=== PATIENT | male | born 1960 | race Caucasian/White ===

== ENCOUNTER 2019-04-29 11:53 | Observation (INO) | payer BC, OTHER ==
[2019-04-29] MEDS ORDERED: ASPIRIN 81 MG PO STA (12:09)
[2019-04-29 12:37] LABS: Basophils % (A) 0 %; Eosinophils # (A) 0.2 k/uL (0-0.7); Eosinophils % (A) 4 %; HCT 41.4 % (39.0-53.0); Lymphocytes # (A) 0.9 k/uL (1.0-4.8); Lymphocytes % (A) 21 %; MCH 30.5 pg (25.0-35.0); MCHC 33.8 g/dL (31.0-37.0); MCV 90.3 fL (80.0-100.0); Mean Platelet Volume 6.3; Monocytes # (A) 0.2 k/uL (0-1.0); Monocytes % (A) 5 %; Neutrophils % (A) 68 %; Platelet Count 220 k/uL (150-450); RBC 4.58 m/uL (4.30-5.90); RDW 14.2 % (11.5-15.5); WBC 4.3 k/uL (3.8-10.6)
[2019-04-29 12:50] LABS: African American GFR (CKD) >90 (>60 ml/min/1.73 sqM); Anion Gap 6 mmol/L; Blood Urea Nitrogen 13 mg/dL (9-20); Calcium 9.1 mg/dL (8.4-10.2); Carbon Dioxide 27 mmol/L (22-30); Chloride 107 mmol/L (98-107); Glucose 147 mg/dL (74-99); Potassium 3.9 mmol/L (3.5-5.1); Sodium 140 mmol/L (137-145)
--- NOTE | 2019-04-29 13:02 | CT ---
EXAMINATION TYPE: CT chest angio for PE DATE OF EXAM: 04/29/2019 COMPARISON: None HISTORY: Shortness of breath CT DLP: 907.8 mGycm Automated exposure control for dose reduction was used. CONTRAST: CT Chest for pulmonary embolism performed with with IV Contrast, patient injected with 100 mL of Isov ue 300. FINDINGS: LUNGS: There is very minimal subsegmental areas of consolidation likely in the basis of atelectasis. The right lung base is interlobular septal thickening compatible with interstitial lung disease and p robable fibrosis. MEDIASTINUM: There is satisfactory enhancement of the pulmonary artery and its branches, there is no CT evidence for pulmonary embolism. There are no greater than 1 cm hilar or mediastinal lymph nodes. No pericardial effusion is seen. Coronary artery calcification seen. OTHER: Gallstone noted. Diverticulosis of the colon. Accessory spleen noted. Atrophic and degenerati ve changes spine. Small hiatal hernia suspected. IMPRESSION: 1. Coronary artery calcified cage correlate clinically. 2. No CT evidence of pulmonary embolism. 3. Cholelithiasis. 4. Interstitial interlobular septal thickening at the lung bases compatible with mild chronic interst itial pulmonary lung disease or fibrosis.
[2019-04-29] MEDS ORDERED: NALOXONE 0.4 MG/ML 1 ML VIAL IV PRN (13:15)
--- NOTE | 2019-04-29 13:15 | ED ---
General Adult HPI - General Chief complaint: Shortness of Breath Stated complaint: sob Time Seen by Provider: 04/29/19 12:05 Source: patient, family Mode of arrival: ambulatory Limitations: no limitations - History of Present Illness Initial comments: Patient is a 58-year-old male who presents with a chief complaint of acute onset shortness of breath while walking this morning. The patient states he had a hip replacement about 2 weeks ago. He states that he is recovering well, walks without any assistance, and has overall been recovering very well. Patient states that while walking today, he had acute onset shortness of breath. This was accompanied by diaphoresis, nausea, and lightheadedness. He cannot identify inciting incident to his symptoms. He states that his symptoms were alleviated with rest. He states that he would need to take a break. Asked to ambulate around the emergency department or up a flight of stairs. - Related Data Home Medications Medication Instructions Recorded Confirmed Aspirin EC [Ecotrin Low Dose] 81 mg PO BID 04/29/19 04/29/19 Losartan [Cozaar] 25 mg PO DAILY 04/29/19 04/29/19 metFORMIN HCL 1,000 mg PO BID 04/29/19 04/29/19 Allergies Allergy/AdvReac Type Severity Reaction Status Date / Time Penicillins Allergy Rash/Hives/ Verified 04/29/19 12:27 Swelling Review of Systems ROS Statement: Those systems with pertinent positive or pertinent negative responses have been documented in the HPI. ROS Other: All systems not noted in ROS Statement are negative. Respiratory: Reports: dyspnea Cardiovascular: Reports: dyspnea on exertion Gastrointestinal: Reports: nausea Past Medical History Past Medical History: Hypertension History of Any Multi-Drug Resistant Organisms: None Reported Past Surgical History: Orthopedic Surgery Additional Past Surgical History / Comment(s): right hip, left hip, mass removal from nose Past Psychological History: No Psychological Hx Reported Smoking Status: Light tobacco smoker Past Alcohol Use History: Occasional Past Drug Use History: None Reported General Exam Limitations: no limitations General appearance: alert, in no apparent distress Head exam: Present: atraumatic, normocephalic Eye exam: Present: normal appearance ENT exam: Present: normal exam Neck exam: Present: normal inspection Respiratory exam: Present: normal lung sounds bilaterally. Absent: respiratory distress, wheezes Cardiovascular Exam: Present: normal rhythm, tachycardia GI/Abdominal exam: Present: soft. Absent: distended, tenderness Rectal exam: Present: deferred Extremities exam: Present: normal inspection. Absent: pedal edema, joint swelling, calf tenderness Back exam: Present: normal inspection Neurological exam: Present: alert, oriented X3 Psychiatric exam: Present: normal affect, normal mood Skin exam: Present: warm, dry, intact Course Vital Signs 04/29/19 04/29/19 11:56 12:17 Temperature 98.6 F Pulse Rate 107 H Respiratory 22 22 Rate Blood Pressure 124/88 O2 Sat by Pulse 93 L Oximetry Medical Decision Making - Medical Decision Making Patient presents with chief complaint of acute onset shortness of breath. On initial evaluation, patient is borderline hypoxic at 93% on room air, he is mildly tachycardic at 104 bpm. Patient is in no acute distress. He was placed on oxygen, given an aspirin. Concern for PE given her recent surgery and acute onset of his symptoms. Patient to be evaluated. Labs including cardiac enzymes, computed tomography scan of the chest with contrast. EKG performed at 1250 shows normal sinus rhythm with a rate of 94 bpm, signals are within normal limits, no acute signs of ischemia present. 1:[address] evaluation does not identify any evidence of pulmonary embolism. There is CT evidence of coronary artery calcifications, there is cholelithiasis, and interstitial, interlobular septal thickening of the lung bases compatible with mild chronic interstitial pulmonary disease versus fibrosis. Laboratory evaluation is unremarkable, initial cardiac enzymes are negative. On further discussion, the patient does now admit to nausea diaphoresis at the onset of his shortness of breath while walking. Currently, the patient states he is asymptomatic. He will be admitted for further cardiac evaluation. Results were discussed with the patient's family, they are agreeable with this care plan. Case discussed with Dr. Morrell who accepts admission with consult to cardiology. - Lab Data Result diagrams: 04/29/19 12:25 04/29/19 12:25 Lab Results 04/29/19 04/29/19 04/29/19 Range/Units 12:25 12:25 12:25 WBC 4.3 (3.8-10.6) k/uL RBC 4.58 (4.30-5.90) m/uL Hgb 14.0 (13.0-17.5) gm/dL Hct 41.4 (39.0-53.0) % MCV 90.3 (80.0-100.0) fL MCH 30.5 (25.0-35.0) pg MCHC 33.8 (31.0-37.0) g/dL RDW 14.2 (11.5-15.5) % Plt Count 220 (150-450) k/uL Neutrophils % 68 % Lymphocytes % 21 % Monocytes % 5 % Eosinophils % 4 % Basophils % 0 % Neutrophils # 3.0 (1.3-7.7) k/uL Lymphocytes # 0.9 L (1.0-4.8) k/uL Monocytes # 0.2 (0-1.0) k/uL Eosinophils # 0.2 (0-0.7) k/uL Basophils # 0.0 (0-0.2) k/uL Sodium 140 (137-145) mmol/L Potassium 3.9 (3.5-5.1) mmol/L Chloride 107 (98-107) mmol/L Carbon Dioxide 27 (22-30) mmol/L Anion Gap 6 mmol/L BUN 13 (9-20) mg/dL Creatinine 0.78 (0.66-1.25) mg/dL Est GFR (CKD-EPI)AfAm >90 (>60 ml/min/1.73 sqM) Est GFR (CKD-EPI)NonAf >90 (>60 ml/min/1.73 sqM) Glucose 147 H (74-99) mg/dL Calcium 9.1 (8.4-10.2) mg/dL Troponin I (0.000-0.034) ng/mL NT-Pro-B Natriuret Pep 19 pg/mL 04/29/19 Range/Units 12:25 WBC (3.8-10.6) k/uL RBC (4.30-5.90) m/uL Hgb (13.0-17.5) gm/dL Hct (39.0-53.0) % MCV (80.0-100.0) fL MCH (25.0-35.0) pg MCHC (31.0-37.0) g/dL RDW (11.5-15.5) % Plt Count (150-450) k/uL Neutrophils % % Lymphocytes % % Monocytes % % Eosinophils % % Basophils % % Neutrophils # (1.3-7.7) k/uL Lymphocytes # (1.0-4.8) k/uL Monocytes # (0-1.0) k/uL Eosinophils # (0-0.7) k/uL Basophils # (0-0.2) k/uL Sodium (137-145) mmol/L Potassium (3.5-5.1) mmol/L Chloride (98-107) mmol/L Carbon Dioxide (22-30) mmol/L Anion Gap mmol/L BUN (9-20) mg/dL Creatinine (0.66-1.25) mg/dL Est GFR (CKD-EPI)AfAm (>60 ml/min/1.73 sqM) Est GFR (CKD-EPI)NonAf (>60 ml/min/1.73 sqM) Glucose (74-99) mg/dL Calcium (8.4-10.2) mg/dL Troponin I <0.012 (0.000-0.034) ng/mL NT-Pro-B Natriuret Pep pg/mL Disposition Clinical Impression: Moderate risk chest pain, Exertional dyspnea Disposition: ADMITTED IP TO THIS HOSP Condition: Good Is patient prescribed a controlled substance at d/c from ED?: No Referrals: Nonstaff,Physician [Primary Care Provider] - 1-2 days Decision to Admit Reason: Admit from EC - Out of Hospital Transfer - Req. Specs Out of Hospital Transfer - Requested Specifics: Telemetry Unit
[2019-04-29] MEDS ORDERED: IPRATROPIUM-ALBUTEROL 3 ML NEB INHALATION PRN (17:02)
--- NOTE | 2019-04-29 17:05 | P.HPIM ---
History of Present Illness H&P Date: 04/29/19 Chief Complaint: Shortness of breath 58-year-old male with PMH of hypertension, hip replacement 2 weeks ago presents the ED for shortness of breath. Patient reports waking up this morning and eating breakfast. He decided to walk into his backyard which was about 700 feet. Patient reports that he started gardening when he noticed a sudden onset of shortness of breath. Patient reports that it was humid and the environment had a lot of pollen and dust. Patient reports that the shortness of breath continued to worsen, prompting him to come to the ED. Patient reports previously being able to walk more than 2 miles without feeling short of breath. Patient denies any orthopnea or lower extremity swelling. 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 He has retired for the past 25 years. Patient denies any headache, lower extremity edema, nausea or vomiting, fever or chills, cough, chest pain, palpitations, changes in urination or bowel habits. No changes in appetite or weight. He denies any dizziness, numbness/weakness/tingling of the extremities. In the ED, vital signs were stable. CBC was unremarkable. CMP showed a glucose of 147. Troponin was less than 0.012 with EKG showing normal sinus rhythm. BNP was 19. Chest CTA was negative for PE but showed findings of pulmonary fibrosis. Patient is admitted for shortness of breath, rule out acute coronary syndrome. Review of Systems Pertinent positives and negatives as discussed in HPI, a complete review of systems was performed and all other systems are negative. Past Medical History Past Medical History: Hypertension Additional Past Medical History / Comment(s): "borderline diabetic and hypertensive" History of Any Multi-Drug Resistant Organisms: None Reported Past Surgical History: Orthopedic Surgery Additional Past Surgical History / Comment(s): right hip, left hip, mass removal from nose Past Anesthesia/Blood Transfusion Reactions: No Reported Reaction Past Psychological History: No Psychological Hx Reported Smoking Status: Never smoker Past Alcohol Use History: Occasional Past Drug Use History: None Reported - Past Family History Mother Family Medical History: Congestive Heart Failure (CHF), Hyperlipidemia Father Family Medical History: Congestive Heart Failure (CHF), Diabetes Mellitus, Hyperlipidemia Medications and Allergies Home Medications Medication Instructions Recorded Confirmed Type Aspirin EC [Ecotrin Low Dose] 81 mg PO BID 04/29/19 04/29/19 History Losartan [Cozaar] 25 mg PO DAILY 04/29/19 04/29/19 History metFORMIN HCL 1,000 mg PO BID 04/29/19 04/29/19 History Allergies Allergy/AdvReac Type Severity Reaction Status Date / Time Penicillins Allergy Rash/Hives/ Verified 04/29/19 12:27 Swelling Physical Exam Vitals: Vital Signs Temp Pulse Pulse Resp BP BP Pulse Ox 04/29/19 14:57 97.6 F 90 18 156/93 93 L 04/29/19 13:39 98.4 F 95 20 134/87 96 04/29/19 12:17 22 04/29/19 11:56 98.6 F 107 H 22 124/88 93 L Intake and Output 04/29/19 04/29/19 04/29/19 06:59 14:59 22:59 Other: Weight 113.398 kg General: [non toxic], [no distress], [appears at stated age] Derm: [warm], [dry] Head: [atraumatic], [normocephalic], [symmetric] Eyes: [EOMI], [no lid lag], [anicteric sclera] Mouth: [no lip lesion], [mucus membranes moist] Cardiovascular: [S1S2 reg], [no murmur], [positive posterior tibial pulse bilateral], Lungs: [CTA bilateral], [no rhonchi, no rales] , [no accessory muscle use] Abdominal: [soft], [ nontender to palpation], [no guarding], [no appreciable organomegaly] Ext: [no gross muscle atrophy], [no edema], [no contractures] Neuro: [ CN II-XI grossly intact], [no focal neuro deficits] Psych: [Alert], [oriented], [appropriate affect] Results CBC & Chem 7: 04/29/19 12:25 04/29/19 12:25 Labs: Abnormal Lab Results - Last 24 Hours (Table) 04/29/19 04/29/19 Range/Units 12:25 12:25 Lymphocytes # 0.9 L (1.0-4.8) k/uL Glucose 147 H (74-99) mg/dL Thrombosis Risk Factor Assmnt - Choose All That Apply Any of the Below Risk Factors Present?: Yes Each Factor Represents 1 point: Age 41-60 years Thrombosis Risk Factor Assessment Total Risk Factor Score: 1 Thrombosis Risk Factor Assessment Level: Low Risk Assessment and Plan Assessment: Assessment and Plan Acute onset of shortness of breath likely related to pulmonary fibrosis Hypertension Possibly related to interstitial lung disease. Troponin was less than 0.012 with EKG showing normal sinus rhythm. CTA of the chest rules out PE but shows findings of pulmonary fibrosis. BNP is 19. Plans: Trend 2 troponin/EKG to rule out ACS. Start DuoNeb 4 times a day as needed for shortness of breath. Will start 5 day course of prednisone 40 mg by mouth. Follow echocardiogram. Follow cardiology and pulmonology consultation. Telemetry monitoring. BP 156/93. Plans: Continue losartan. Monitor vitals, adjust medications as necessary. DVT prophylaxis: [SCD boots] Discussed with: [Patient and ] Anticipated discharge: [Tomorrow] Anticipated discharge place: [Home] A total of [30] minutes was spent on the care of this complex patient more than 50% of the time was spent in counseling and care coordination. Patient would like to make his Cris decision-maker indicates that he can make decisions for himself. Patient elects to be full code at this time. Patient is admitted for acute onset of shortness of breath. PE has been ruled out. Plans to rule out ACS, echocardiogram ordered, cardiology consulted. Findings consistent with pulmonary fibrosis, started on DuoNeb and prednisone, pulmonology is consulted. Patient is pending clinical improvement. Likely DC tomorrow.
[2019-04-29] MEDS: ASPIRIN 81 MG PO SCH (19:58)
[2019-04-30 06:29] LABS: Basophils % (A) 0 %; Eosinophils # (A) 0.3 k/uL (0-0.7); Eosinophils % (A) 4 %; HCT 40.3 % (39.0-53.0); Lymphocytes % (A) 17 %; MCH 29.6 pg (25.0-35.0); MCHC 32.3 g/dL (31.0-37.0); MCV 91.8 fL (80.0-100.0); Mean Platelet Volume 6.5; Monocytes # (A) 0.3 k/uL (0-1.0); Monocytes % (A) 5 %; Neutrophils # (A) 4.4 k/uL (1.3-7.7); Neutrophils % (A) 72 %; Platelet Count 215 k/uL (150-450); RBC 4.39 m/uL (4.30-5.90); RDW 14.3 % (11.5-15.5); WBC 6.1 k/uL (3.8-10.6)
[2019-04-30 06:45] LABS: African American GFR (CKD) >90 (>60 ml/min/1.73 sqM); Anion Gap 5 mmol/L; Blood Urea Nitrogen 10 mg/dL (9-20); Calcium 9.1 mg/dL (8.4-10.2); Carbon Dioxide 30 mmol/L (22-30); Chloride 104 mmol/L (98-107); Glucose 119 mg/dL (74-99); Potassium 4.6 mmol/L (3.5-5.1); Sodium 139 mmol/L (137-145)
[2019-04-30 07:56] VITALS: RESP 16
[2019-04-30] MEDS ORDERED: LOSARTAN 25 MG TAB PO SCH (09:00)
[2019-04-30] MEDS ORDERED: predniSONE 20 MG TAB PO SCH (09:00)
[2019-04-30] MEDS: ASPIRIN 81 MG PO SCH (10:35)
--- NOTE | 2019-04-30 11:34 | P.CRDCN ---
History of Present Illness Consult date: 04/30/19 History of present illness: This is a 58-year-old gentleman with history of hypertension who had a hip replacement about 2 weeks ago. Patient came home and and has been able to ambulate. Patient had a previous hip replacement. Patient was ambulating and doing something in the garden yesterday. Suddenly he became very short of breath. No wheezing or rhonchi. Denied any chest pain. Because of the concern for possible pulmonary emboli, Patient came to the emergency room. Patient had a computed tomography scan of the chest which is negative for ischemia. His EKGs are normal. Cardiac enzymes are negative. Patient thinks the most probably had some ALLERGIC reaction and has had similar experience long time ago. No history of smoking, diabetes or previous ischemic heart disease. Patient is vacationing and his from out of town and wants to go home. He'll see his primary physician, soon. Bedside echocardiogram showed normal LV function without any segmental wall motion defects. Patient could be discharged home to have further follow-up with primary care physician and possible stress test. Patient had a stress test about 2 years ago which apparently was normal Review of Systems As per the chart Past Medical History Past Medical History: Hypertension Additional Past Medical History / Comment(s): "borderline diabetic and hypertensive" History of Any Multi-Drug Resistant Organisms: None Reported Past Surgical History: Orthopedic Surgery Additional Past Surgical History / Comment(s): right hip, left hip, mass removal from nose Past Anesthesia/Blood Transfusion Reactions: No Reported Reaction Past Psychological History: No Psychological Hx Reported Smoking Status: Never smoker Past Alcohol Use History: Occasional Past Drug Use History: None Reported - Past Family History Mother Family Medical History: Congestive Heart Failure (CHF), Hyperlipidemia Father Family Medical History: Congestive Heart Failure (CHF), Diabetes Mellitus, Hyperlipidemia Medications and Allergies Home Medications Medication Instructions Recorded Confirmed Type Aspirin EC [Ecotrin Low Dose] 81 mg PO BID 04/29/19 04/29/19 History Losartan [Cozaar] 25 mg PO DAILY 04/29/19 04/29/19 History metFORMIN HCL 1,000 mg PO BID 04/29/19 04/29/19 History Allergies Allergy/AdvReac Type Severity Reaction Status Date / Time Penicillins Allergy Rash/Hives/ Verified 04/29/19 12:27 Swelling Physical Exam Vitals: Vital Signs Temp Pulse Pulse Resp BP BP Pulse Ox 04/30/19 08:00 87 16 04/30/19 07:55 97.6 F 92 87 16 144/87 94 L 04/30/19 07:40 84 04/30/19 04:00 98.4 F 83 15 138/74 96 04/29/19 23:50 98.8 F 80 15 133/84 97 04/29/19 23:29 16 04/29/19 20:00 16 04/29/19 19:22 98.8 F 90 15 139/85 97 04/29/19 16:00 18 04/29/19 14:57 97.6 F 90 18 156/93 93 L 04/29/19 13:39 98.4 F 95 20 134/87 96 04/29/19 12:17 22 04/29/19 11:56 98.6 F 107 H 22 124/88 93 L Intake and Output 04/29/19 04/30/19 04/30/19 22:59 06:59 14:59 Other: Voiding Method Toilet Toilet Toilet # Voids 1 GENERAL EXAM: Patient is alert and oriented and doesn't appear to be in any acute distress HEENT: Normocephalic. Normal reaction of pupils, equal size, normal range of extraocular motion. No erythema or exudates in the throat. NECK: No masses, no nuchal rigidity. CHEST: No chest wall deformity. LUNGS: Equal air entry with no crackles or wheeze. HEART: S1 and S2 normal with no audible mumurs or gallops. Regular rhythm, femorals equal on both sides.. ABDOMEN: No hepatosplenomegaly, normal bowel sounds, no guarding or rigidity. SKIN: No rashes CENTRAL NERVOUS SYSTEM: No focal deficits. EXTREMITIES: No cyanosis, clubbing or edema. Results 04/30/19 06:17 04/30/19 06:17 Cardiac Enzymes 04/29/19 04/29/19 04/30/19 Range/Units 12:25 17:40 00:39 Troponin I <0.012 <0.012 <0.012 (0.000-0.034) ng/mL CBC 04/29/19 04/30/19 Range/Units 12:25 06:17 WBC 4.3 6.1 (3.8-10.6) k/uL RBC 4.58 4.39 (4.30-5.90) m/uL Hgb 14.0 13.0 (13.0-17.5) gm/dL Hct 41.4 40.3 (39.0-53.0) % Plt Count 220 215 (150-450) k/uL Comprehensive Metabolic Panel 04/29/19 04/30/19 Range/Units 12:25 06:17 Sodium 140 139 (137-145) mmol/L Potassium 3.9 4.6 (3.5-5.1) mmol/L Chloride 107 104 (98-107) mmol/L Carbon Dioxide 27 30 (22-30) mmol/L BUN 13 10 (9-20) mg/dL Creatinine 0.78 0.69 (0.66-1.25) mg/dL Glucose 147 H 119 H (74-99) mg/dL Calcium 9.1 9.1 (8.4-10.2) mg/dL Current Medications Generic Name Dose Route Start Last Admin Trade Name Freq PRN Reason Stop Dose Admin Albuterol/Ipratropium 3 ml 04/29/19 17:02 04/30/19 07:52 Duoneb 0.5 Mg-3 Mg/3 Ml Soln INHALATION 3 ml RT-QID PRN Administration Shortness Of Breath Or Wheezing Aspirin 81 mg 04/29/19 21:00 04/30/19 10:35 Aspirin PO 81 mg BID GALINDO Administration Losartan Potassium 25 mg 04/30/19 09:00 04/30/19 10:34 Cozaar PO 25 mg DAILY GALINDO Administration Naloxone HCl 0.2 mg 04/29/19 13:15 Narcan IV Q2M PRN Opioid Reversal Prednisone 40 mg 04/30/19 09:00 04/30/19 10:34 PO 05/04/19 09:01 40 mg DAILY GALINDO Administration Intake and Output 04/29/19 04/30/19 04/30/19 22:59 06:59 14:59 Other: Voiding Method Toilet Toilet Toilet # Voids 1 04/30/19 06:17 04/30/19 06:17 EKG Interpretations (text) Sinus rhythm Assessment and Plan (1) Essential hypertension Current Visit: Yes Status: Acute Code(s): I10 - ESSENTIAL (PRIMARY) HYPERTENSION SNOMED Code(s): 01897012 (2) Exertional dyspnea Current Visit: Yes Status: Acute Code(s): R06.09 - OTHER FORMS OF DYSPNEA SNOMED Code(s): 81121100 (3) History of hip replacement Current Visit: Yes Status: Acute Code(s): Z96.649 - PRESENCE OF UNSPECIFIED ARTIFICIAL HIP JOINT SNOMED Code(s): 139234297 Plan: At this point patient cardiac enzymes, EKGs and echo within normal limits. Computed tomography scan is negative for ischemia. Patient could be discharged home from [facility] standpoint. Follow-up with primary care physician and possible stress test as an outpatient.
[2019-04-30 12:24] VITALS: BP 123/83; PULSE 84; TEMP 98.4
--- NOTE | 2019-04-30 12:56 | ECHOF ---
Referral Reason:cp MEASUREMENTS -------- HEIGHT: 175.3 cm WEIGHT: 113.4 kg BP: 144/87 RVIDd: 3.5 cm (< 3.3) IVSd: 1.2 cm (0.6 - 1.1) LVIDd: 4.8 cm (3.9 - 5.3) LVPWd: 1.2 cm (0.6 - 1.1) IVSs: 1.9 cm LVIDs: 2.9 cm LVPWs: 1.7 cm LA Diam: 3.3 cm (2.7 - 3.8) LAESV Index (A-L): 26.28 ml/m Ao Diam: 4.2 cm (2.0 - 3.7) AV Cusp: 2.5 cm (1.5 - 2.6) MV EXCURSION: 14.013 mm (> 18.000) MV EF SLOPE: 84 mm/s (70 - 150) EPSS: 0.9 cm MV E Efren: 0.76 m/s MV DecT: 347 ms MV A Efren: 0.96 m/s MV E/A Ratio: 0.79 RAP: 5.00 mmHg RVSP: 22.70 mmHg FINDINGS -------- Sinus rhythm. This was a technically good study. The left ventricular size is normal. There is borderline concentric left ventricular hypertrophy. Overall left ventricular systolic function is normal with, an EF between 60 - 65 %. The right ventricle is mildly enlarged. Normal LA size by volume 22+/-6 ml/m2. The right atrium is normal in size. Interatrial and interventricular septum intact. The aortic valve is trileaflet and appears structurally normal. The mitral valve is normal. Mild tricuspid regurgitation present. Right ventricular systolic pressure is normal at < 35 mmHg. Trace/mild (physiologic) pulmonic regurgitation. The aortic root is dilated measuring 4.2cm. Normal inferior vena cava with normal inspiratory collapse consistent with estimated right atrial pre ssure of 5 mmHg. There is no pericardial effusion. CONCLUSIONS -------- 1. Sinus rhythm. 2. This was a technically good study. 3. The left ventricular size is normal. 4. There is borderline concentric left ventricular hypertrophy. 5. Overall left ventricular systolic function is normal with, an EF between 60 - 65 %. 6. The right ventricle is mildly enlarged. 7. Normal LA size by volume 22+/-6 ml/m2. 8. The right atrium is normal in size. 9. Interatrial and interventricular septum intact. 10. The aortic valve is trileaflet and appears structurally normal. 11. The mitral valve is normal. 12. Mild tricuspid regurgitation present. 13. Right ventricular systolic pressure is normal at < 35 mmHg. 14. Trace/mild (physiologic) pulmonic regurgitation. 15. The aortic root is dilated measuring 4.2cm. 16. Normal inferior vena cava with normal inspiratory collapse consistent with estimated right atrial pressure of 5 mmHg. 17. There is no pericardial effusion. HOSPITAL CLINIC ASSISTANT: Gisell Saunders RDCS
--- NOTE | 2019-04-30 14:19 | P.CNPUL ---
History of Present Illness Consult date: 04/30/19 Requesting physician: Leroy Abarca Reason for consult: dyspnea Chief complaint: Sudden episode of shortness of breath History of present illness: This is a 58-year-old white male with history of hypertension, degenerative joint disease, history of recent hip replacement about 2 weeks ago, this was done at [facility]. Patient had no previous history of documented asthma or COPD, never smoked, but he told her today that he always had difficulty breathing when he is around pollen or mold. Never treated with bronchodilators. Patient was working in his garden yesterday, suddenly he developed shortness of breath, no chest pain, no cough no wheezing, no fever, no chills. Patient became quite concerned about the possibility of pulmonary embolism, hence he came into the ER. Workup included CT angiogram of the chest which came back negative for thromboembolic disease. EKG was normal. Cardiac enzymes are normal. His CT angiogram of the chest showed nonspecific pulmonary fibrosis, minimal, hence this consult was initiated. During my evaluation, the patient has no pulmonary symptoms whatsoever. No cough no wheezing no fever no chills no chest pain or shortness of breath. No palpitations. Patient was already seen by cardiology and cleared for discharge. His echocardiogram was also unremarkable. Labs on admission were all normal. Review of Systems Constitutional: Denies any weight loss, no fever, no chills. No weight loss. Eyes: denies blurred vision, denies decreased vision Ears: deny: decreased hearing Ears, nose, mouth and throat: Denies headache, Denies sore throat Cardiovascular: Denies any chest pain and palpitations syncope. Denies any diaphoresis. Respiratory: As noted in the history of the present illness, relatively asymptomatic. Gastrointestinal: Denies abdominal pain, Denies diarrhea, Denies nausea, Denies vomiting Genitourinary: Denies any dysuria frequency urgency or hematuria. Musculoskeletal: History of osteoarthritis, and recent hip arthroplasty at [facility]. Integumentary: Denies pruritus, Denies rash Neurological: Denies headaches blurred vision dizziness weakness or numbness. Psychiatric: Denies any depression symptoms, denied any suicidal or homicidal thoughts. Endocrine: Denies any heat or cold intolerance. Denies any polyuria or polyphagia and polydipsia. Past Medical History Past Medical History: Hypertension Additional Past Medical History / Comment(s): "borderline diabetic and hypertensive" History of Any Multi-Drug Resistant Organisms: None Reported Past Surgical History: Orthopedic Surgery Additional Past Surgical History / Comment(s): right hip, left hip, mass removal from nose Past Anesthesia/Blood Transfusion Reactions: No Reported Reaction Past Psychological History: No Psychological Hx Reported Smoking Status: Never smoker Past Alcohol Use History: Occasional Past Drug Use History: None Reported - Past Family History Mother Family Medical History: Congestive Heart Failure (CHF), Hyperlipidemia Father Family Medical History: Congestive Heart Failure (CHF), Diabetes Mellitus, Hyperlipidemia Medications and Allergies Home Medications Medication Instructions Recorded Confirmed Type Aspirin EC [Ecotrin Low Dose] 81 mg PO BID 04/29/19 04/29/19 History Losartan [Cozaar] 25 mg PO DAILY 04/29/19 04/29/19 History metFORMIN HCL 1,000 mg PO BID 04/29/19 04/29/19 History Allergies Allergy/AdvReac Type Severity Reaction Status Date / Time Penicillins Allergy Rash/Hives/ Verified 04/29/19 12:27 Swelling Physical Exam Vitals: Vital Signs Temp Pulse Pulse Resp BP BP Pulse Ox 04/30/19 12:00 98.4 F 84 16 123/83 95 04/30/19 08:00 87 16 04/30/19 07:55 97.6 F 92 87 16 144/87 94 L 04/30/19 07:40 84 04/30/19 04:00 98.4 F 83 15 138/74 96 04/29/19 23:50 98.8 F 80 15 133/84 97 04/29/19 23:29 16 04/29/19 20:00 16 04/29/19 19:22 98.8 F 90 15 139/85 97 04/29/19 16:00 18 04/29/19 14:57 97.6 F 90 18 156/93 93 L Intake and Output 04/29/19 04/30/19 04/30/19 22:59 06:59 14:59 Intake Total 222 Balance 222 Intake: Oral 222 Other: Voiding Method Toilet Toilet Toilet # Voids 1 Physical Exam: Revealed 58-year-old white male, extremely pleasant, in no distress. Head: Atraumatic, normocephalic. HEENT:[Neck is supple.] [No neck masses.] [No thyromegaly.] [No JVD.] Chest: [Clear throughout, no crackles, no rhonchi, no wheezes.] Cardiac Exam: [Normal S1 and S2, no S3 gallop, no murmur.] Abdomen: [Soft, nontender, no megaly, no rebound, no guarding, normal bowel sounds.] Extremities: [No clubbing, no edema, no cyanosis.] Neurological Exam: [No focal neurologic deficit.] Alert and oriented 3. Psychiatric: Normal mood affect and normal mental status examination. Skin: No rashes. Lymphatics: No lymphadenopathy. Results - Laboratory Findings CBC and BMP: 04/30/19 06:17 04/30/19 06:17 Abnormal lab findings: Abnormal Labs 04/29/19 04/29/19 04/30/19 12:25 12:25 06:17 Lymphocytes # 0.9 L Glucose 147 H 119 H - Diagnostic Findings CT scan - chest: image reviewed (As noted in HPI.) Assessment and Plan Assessment: Impression: Acute onset of shortness of breath, suspect transient episode of bronchospasm, could be related to exposure to pollen. Patient had previous episodes in the past, he may have underlying bronchial asthma. However the patient will eventually require a methacholine inhalation challenge test to confirm this and this could be done on outpatient basis. Presently the patient is asymptomatic, I did recommend that he uses albuterol 2 puffs 4 times a day when necessary, and patient could be cleared to be discharged home. Suggest outpatient follow-up in my office and I would likely recommend a methacholine inhalation challenge test. Nonspecific, minimal pulmonary fibrosis, need to be monitored on outpatient basis, patient will eventually need a PFT and a high-resolution CT of the chest in the next 6 months. Patient is aware of his mild pulmonary fibrosis, strongly doubt if this has anything to do with his sudden episode of shortness of breath. Degenerative joint disease and recent hip arthroplasty, following up with orthopedics at [facility]. Recommendation: Patient was given a prescription for albuterol 2 puffs 4 times a day when necessary, cleared for discharge if cleared by other physicians, and advised to have outpatient follow-up regarding his episode of shortness of breath and possibly consider a methacholine inhalation challenge test in the office, also needs future follow-up on his mild pulmonary fibrosis. Time with Patient: Greater than 30
--- NOTE | 2019-04-30 14:56 | P.DS ---
Providers Date of admission: 04/29/19 13:15 Expected date of discharge: 04/30/19 Attending physician: Leroy Abarca MD Consults: 04/29/19 13:16 Consult Physician Routine Consulting Provider: Selvin Landeros Consult Reason/Comments: moderate risk chest pain Do you want consulting provider notified?: Yes 04/29/19 17:01 Consult Physician Routine Consulting Provider: Otilio Gibson Consult Reason/Comments: Pulmonary fibrosis Do you want consulting provider notified?: Yes Primary care physician: Physician Nonstaff - Discharge Diagnosis(es) (1) Acute bronchospasm Current Visit: Yes Status: Acute (2) Pulmonary fibrosis Current Visit: Yes Status: Acute (3) Dyspnea Current Visit: Yes Status: Acute (4) Essential hypertension Current Visit: Yes Status: Acute Hospital Course: The patient is a 58-year-old male with hypertension gentle joint disease and recent hip replacement 2 weeks ago that presented with dyspneaon observation for further workup. Workup was negative his troponins were negative, NT proBNP was 19. CTA of the chest was negative for PE but did show mild chronic interstitial pulmonary lung disease or fibrosis. Echocardiogram indicated a preserved LVEF of 60-65% and the patient was cleared by cardiology. Pulmonary was consulted and suspected that acute bronchospasm was responsible for the patient's dyspnea and recommended outpatient workup for possible underlying bronchial asthma with a methacholine inhalation challenge test with plans for PFT, high-resolution CT for monitoring of the patient's mild pulmonary fibrosis. Patient was cleared for discharge with recommendations for albuterol inhaler. Focused exam Respiratory: Clear to auscultation bilaterally no wheezes or rhonchi Patient Condition at Discharge: Good Plan - Discharge Summary Discharge Rx Participant: No New Discharge Prescriptions: No Action Aspirin EC [Ecotrin Low Dose] 81 mg PO BID metFORMIN HCL 1,000 mg PO BID Losartan [Cozaar] 25 mg PO DAILY Discharge Medication List Aspirin EC [Ecotrin Low Dose] 81 mg PO BID 04/29/19 [History] Losartan [Cozaar] 25 mg PO DAILY 04/29/19 [History] metFORMIN HCL 1,000 mg PO BID 04/29/19 [History] Follow up Appointment(s)/Referral(s): Nonstaff,Physician [Primary Care Provider] - 1-2 days Discharge Disposition: HOME SELF-CARE
== END 2019-04-30 15:06 | disposition home or self-care (01) ==
LOC: EC 11:53 → 1SOBS 13:15
PROVIDERS: ADMIT Family Medicine; ATTEND Family Medicine
DX: J98.01 Acute bronchospasm (principal); J84.10 Pulmonary fibrosis, unspecified; I10 Essential (primary) hypertension; R06.09 Other forms of dyspnea; R61 Generalized hyperhidrosis; R11.0 Nausea; R06.02 Shortness of breath; R09.02 Hypoxemia; R00.0 Tachycardia, unspecified; F17.200 Nicotine dependence, unspecified, uncomplicated; R73.03 Prediabetes; M19.90 Unspecified osteoarthritis, unspecified site; I25.10 Atherosclerotic heart disease of native coronary artery without angina pectoris; K80.20 Calculus of gallbladder without cholecystitis without obstruction; Z96.649 Presence of unspecified artificial hip joint; Z79.899 Other long term (current) drug therapy; Z79.82 Long term (current) use of aspirin; Z79.84 Long term (current) use of oral hypoglycemic drugs; Z88.0 Allergy status to penicillin; Z77.090 Contact with and (suspected) exposure to asbestos; Z57.2 Occupational exposure to dust; Z57.5 Occupational exposure to toxic agents in other industries; Z82.49 Family history of ischemic heart disease and other diseases of the circulatory system; Z83.3 Family history of diabetes mellitus
CPT/HCPCS: 99285; 36415; 94640; 93005; 93306; 83880; 80048 ×2; 84484 ×2; 85025 ×2; 71275; G0378 ×2; J7512; Q9967

== ENCOUNTER 2023-02-03 08:46 | Day surgery (SDC) | payer BC, OTHER ==
[~2023-02-03 08:46] MED LIST: CIPROFLOXACIN/DEXTROSE PMX 400 MG in DEXTROSE/WATER 1 200ML.BAG IVPB PRN
--- NOTE | 2023-02-03 15:19 | XR ---
EXAMINATION TYPE: XR KUB DATE OF EXAM: 02/03/2023 COMPARISON: None INDICATION: Right ureteral stone TECHNIQUE: Single view abdomen frontal projection FINDINGS: There is a normal bowel gas pattern. Psoas margins are normal. No organomegaly is present. There is a 1.5 cm calcification upper pole right kidney. There is a 0.9 cm calcification which may be within the distal right ureter. IMPRESSION: 1. Distal right ureteral stone measuring 0.9 cm. 2. 1.5 cm right renal stone
[2023-02-03] MEDS ORDERED: LACTATED RINGERS 1,000 ML IV ONE ×2 (15:49→19:42)
[2023-02-03] MEDS ORDERED: ONDANSETRON 4 MG/2 ML VIAL IVP ONE (16:05)
[2023-02-03] MEDS ORDERED: DEXAMETHASONE SOD PHOSPHATE 4 MG/ML 1 ML VIAL IVP ONE (16:06)
[2023-02-03] MEDS ORDERED: ONDANSETRON 4 MG/2 ML VIAL ONE (16:08)
[2023-02-03 16:24] LABS: Glucose,Whole Blood 118 mg/dL (70-110)
[2023-02-03] MEDS ORDERED: fentaNYL (PF) 50 MCG/ML 2 ML AMP ONE (18:41)
[2023-02-03] MEDS ORDERED: MIDAZOLAM 2 MG/2 ML VIAL ONE (18:41)
[2023-02-03] MEDS ORDERED: LIDOCAINE 2% INJ 20 MG/ML (2 ML VIAL) ONE (18:41)
[2023-02-03] MEDS ORDERED: PROPOFOL 10 MG/ML 20 ML VIAL IV ONE (18:41)
--- NOTE | 2023-02-03 18:45 | P.HPIHPCON ---
History of Present Illness H&P Date: 02/03/23 Chief Complaint: right ureteral stone this is a 62 yo male with a hx of 7 mm right-sided distal ureteral stone, he is symptomatically from her stone. Option of right-sided ureteroscopy with holmium laser was discussed with him. Discussed risk which includes but not limited to bleeding, infection, injury to the ureter. Risk of anesthesia was also discussed. He understood all the risk and agreed to proceed with right-sided ureteroscopy, holmium laser lithotripsy, stone basketing and stent Consent for Procedure: I have explained the operation/procedure to the patient, including the risks, benefits, side effects, alternative therapies (including not receiving the proposed treatment or service), the likelihood of the patient achieving his/her goals, and potential recuperation problems for the procedure/sedation/analgesia, as well as any blood products, if indicated. I also explained to the patient the risks, benefits and side effects of the alternatives, as well as the risks related to not receiving the proposed procedure, care, treatment, or services. Past Medical History Past Medical History: Hypertension Additional Past Medical History / Comment(s): "borderline diabetic and hypertensive" History of Any Multi-Drug Resistant Organisms: None Reported Past Surgical History: Orthopedic Surgery Additional Past Surgical History / Comment(s): right hip, left hip, mass removal from nose Past Anesthesia/Blood Transfusion Reactions: No Reported Reaction Past Psychological History: No Psychological Hx Reported Past Alcohol Use History: Occasional Past Drug Use History: None Reported - Past Family History Mother Family Medical History: Congestive Heart Failure (CHF), Hyperlipidemia Father Family Medical History: Congestive Heart Failure (CHF), Diabetes Mellitus, Hyperlipidemia Medications and Allergies Home Medications Medication Instructions Recorded Confirmed Type Ciprofloxacin HCl [Cipro] 500 mg PO BID 02/03/23 02/03/23 History Hydrocodone/Acetaminophen 7.5 - 325 mg PO PRN 02/03/23 History [Hydrocodone/Acetaminophen 7.5-325] Ketorolac Tromethamine 10 mg PO PRN 02/03/23 History Ondansetron Odt [Zofran ODT] 4 mg SUBLINGUAL PRN 02/03/23 History Tamsulosin HCl [Flomax] 0.4 mg PO DAILY 02/03/23 02/03/23 History carvediloL [Coreg] 12.5 mg PO BID 02/03/23 02/03/23 History Allergies Allergy/AdvReac Type Severity Reaction Status Date / Time Penicillins Allergy Rash/Hives/ Verified 02/03/23 15:50 Swelling Surgical - Exam Vital Signs Temp Pulse Resp BP Pulse Ox 98.6 F 79 16 133/79 94 L 02/03/23 16:01 02/03/23 16:01 02/03/23 16:01 02/03/23 16:01 02/03/23 16:01 - General no distress, moderate pain - Eyes normal ocular movement, no pale - ENT normal nares, normal mucosa - Respiratory normal expansion, normal respiratory effort - Abdomen Abdomen: soft, non tender - Psychiatric oriented to time, oriented to person, oriented to place Results - Labs Abnormal Lab Results - Last 24 Hours (Table) 02/03/23 Range/Units 16:10 POC Glucose (mg/dL) 118 H (70-110) mg/dL Assessment and Plan Assessment: OR for right-sided ureteroscopy, holmium laser lithotripsy, stone basketing and stent insertion
--- NOTE | 2023-02-03 19:48 | P.OP ---
Date of Procedure: 02/03/23 Preoperative Diagnosis: Right ureteral stone Postoperative Diagnosis: Same Procedure(s) Performed: Cystoscopy, right ureteroscopy, holmium laser lithotripsy, stone basketing and stent insertion Implants: 6-Citizen Of [place] by 24 cm stent in the right ureter left on a string Anesthesia: RAMIN Surgeon: Andrez Pang Estimated Blood Loss (ml): 5 Pathology: other (Right ureteral stone) Condition: stable Disposition: PACU Indications for Procedure: this is a 62 yo male with a hx of 7 mm right-sided distal ureteral stone, he is symptomatically from her stone. Option of right-sided ureteroscopy with holmium laser was discussed with him. Discussed risk which includes but not limited to bleeding, infection, injury to the ureter. Risk of anesthesia was also discussed. He understood all the risk and agreed to proceed with right-sided ureteroscopy, holmium laser lithotripsy, stone basketing and stent insertion Operative Findings: Right distal ureteral stone Description of Procedure: patient brought to the operating room, general anesthesia was induced. He was prepped and draped in sterile fashion and placed in dorsal lithotomy position. Cystoscopy fitted 21-Citizen Of [place] sheath was inserted per urethra, cystoscopy was performed which showed no abnormality within the bladder. Of note patient had obstructive prostate with intravesical extension. Attention was then carried to the right ureteral orifice. The semirigid ureteroscope was inserted per urethra and advanced up the right ureteral orifice. At this time a stone was encountered in the distal ureter. Using the holmium laser the stone was fr agmented, stone fragments were removed using the stone basket and sent for analysis. The semirigid ureteroscope was advanced all the way up to the UPJ which showed no additional stones. Pullback ureteroscopy was performed which showed no injury to the ureter or any sizable ureteral fragments, there was some edema at the site of the stone. At this time a sensor wire was advanced through the ureteroscope and the ureteroscope was withdrawn with the sensor wire in place. Next a ureteral stent was passed over the wire, the proximal curl was visualized on fluoroscopy and the distal curl was visualized using the cystoscope. The bladder was emptied and the end of the case. Patient tolerated procedure well was taken to recovery stable condition
[2023-02-03 20:00] VITALS: TEMP 97
[2023-02-03 20:43] VITALS: BP 162/84; PULSE 75; RESP 16
--- NOTE | 2023-02-03 20:58 | FL ---
EXAMINATION TYPE: FL guidance operating room DATE OF EXAM: 02/03/2023 CLINICAL HISTORY: Right lithotripsy TECHNIQUE: Fluoroscopy. COMPARISON: None. FINDINGS: Fluoroscopic guidance was provided during procedure performed by Dr. Pang. A total of 26 seconds of fluoroscopic time was utilized during the procedure and 2 spot images were a cquired digitally stored on PACS. Total DAP 6050 Gycmcm. IMPRESSION: As Above.
== END 2023-02-03 20:49 | disposition home or self-care (01) ==
LOC: OR 08:46
PROVIDERS: ATTEND Urology
DX: N20.1 Calculus of ureter (principal); I10 Essential (primary) hypertension; Z88.0 Allergy status to penicillin; Z79.899 Other long term (current) drug therapy
CPT/HCPCS: 52356; 82365; 74018; C1769; J2250; J1100; J2405; J3010; J0744; J2704; J2001